=== PATIENT | male | born 1995 | race Caucasian/White ===

== ENCOUNTER 2018-02-09 11:26 | Inpatient (IN) | payer OTHER ==
[2018-02-09 12:39] VITALS: BMI 29.2
--- NOTE | 2018-02-09 12:49 | HP ---
COWS - Scale Resting Pulse: 0= [place] 80 or Below Sweatin= Chills/Flushing Restless Observation: 3= Extraneous Movement Pupil Size: 1= Pupils >than Normal Bone or Joint Aches: 2= Severe Diffuse Aches Runny Nose/ Eye Tearin= Runny Nose/Eyes GI Upset > 30mins: 3= Vomiting/Diarrhea Tremor Observation: 2= Slight Tremor Visible Yawning Observation: 2= >3x During Session Anxiety or Irritability: 2=Irritable/Anxious Goose Flesh Skin: 0=Smooth Skin COWS Score: 18 Admission ROS S - HPI Chief Complaint: i need help to stop using opiate,klonopin,marijuana Allergies/Adverse Reactions: Allergies Allergy/AdvReac Type Severity Reaction Status Date / Time No Known Allergies Allergy Verified 02/09/18 13:35 History of Present Illness: this 22 years old male with opiate dependence,klonopin,marijuana dependence, seeking detox,stated on methadone 150 mgs/day in [place], and walked out from program 20 days ago,seen in [facility] last night, severe withdrawal symptom never been in detox before nicotine dependence patient did not want to continue treatment and did not want to continue methadone program in [place] anymore, Exam Limitations: No Limitations - Ebola screening Have you traveled outside of the country in the last 21 days: No - Review of Systems Constitutional: Chills, Loss of Appetite, Malaise, Night Sweats, Changes in sleep, Weakness EENT: reports: Tearing, Nose Congestion Respiratory: reports: No Symptoms reported Cardiac: reports: No Symptoms Reported GI: reports: Diarrhea, Nausea, Vomiting, Abdominal cramping : reports: No Symptoms Reported Musculoskeletal: reports: Back Pain, Joint Pain, Muscle Pain, Joint Stiffness Integumentary: reports: Dryness Neuro: reports: Headache, Tremors Endocrine: reports: No Symptoms Reported Hematology: reports: No Symptoms Reported Psychiatric: reports: No Sypmtoms Reported, Judgement Intact, Mood/Affect Appropiate, Orientated x3 Patient History - Patient Medical History Hx Anemia: No Hx Asthma: No Hx Chronic Obstructive Pulmonary Disease (COPD): No Hx Cancer: No Hx Cardiac Disorders: No Hx Congestive Heart Failure: No Hx Hypertension: No Hx Hypercholesterolemia: No Hx Pacemaker: No HX Cerebrovascular Accident: No Hx Seizures: Yes (last 2 weeks ago) Hx Dementia: No Hx Diabetes: No Hx Gastrointestinal Disorders: No Hx Liver Disease: No Hx Genitourinary Disorders: No Hx Sexually Transmitted Disorders: No Hx Renal Disease (ESRD): No Hx Thyroid Disease: No Hx Human Immunodeficiency Virus (HIV): No (last 2014 negative) Hx Hepatitis C: No Hx Depression: No Hx Suicide Attempt: No Hx Bipolar Disorder: No Hx Schizophrenia: No Other Medical History: no suicidal,no homicidal - Patient Surgical History Past Surgical History: No - Smoking Cessation Smoking history: Current every day smoker Have you smoked in the past 12 months: Yes Aproximately how many cigarettes per day: 10 Cigars Per Day: 0 Hx Chewing Tobacco Use: No Initiated information on smoking cessation: Yes 'Breaking Loose' booklet given: 02/09/18 - Substance & Tx. History Hx Alcohol Use: No Hx Substance Use: Yes Substance Use Type: Marijuana, Opiates, Tranquilizers Hx Substance Use Treatment: No - Substances Abused percocet Route: Oral Frequency: 1-2 times per week Amount used: 10 ms Age of first use: 22 Date of Last Use: 02/08/18 Benzodiazepine (Klonopin) Route: Oral Frequency: 1-2 times per week Amount used: 2 mgs Age of first use: 22 Date of Last Use: 02/06/18 Marijuana/Hashish Route: Smoking Frequency: Daily Amount used: 200$ Age of first use: 11 Date of Last Use: 02/07/18 Family Disease History - Family Disease History Family History: Denies Admission Physical Exam BHS - Vital Signs Vital Signs: Vital Signs Temperature 97.4 F L 02/09/18 12:37 Pulse Rate 63 02/09/18 12:37 Respiratory Rate 18 02/09/18 12:37 Blood Pressure 140/83 02/09/18 12:37 O2 Sat by Pulse Oximetry (%) - Physical General Appearance: Yes: Moderate Distress, Tremorous, Sweating, Anxious HEENTM: Yes: Normal ENT Inspection, [place], Pharynx Normal Respiratory: Yes: Lungs Clear, Normal Breath Sounds, No Respiratory Distress Neck: Yes: Within Normal Limits, Supple, Trachea in good position Breast: Yes: Within Normal Limits Cardiology: Yes: Within Normal Limits, Regular Rhythm, S1, S2 Abdominal: Yes: Within Normal Limits, Normal Bowel Sounds, Non Tender, Soft Genitourinary: Yes: Within Normal Limits Back: Yes: Muscle Spasm Musculoskeletal: Yes: Back pain, Joint Stiffness, Muscle Pain Extremities: Yes: Normal Inspection, Normal Range of Motion, Tremors Neurological: Yes: trial management associate II-XII NML intact, Fully Oriented, Alert, Motor Strength 5/5 Integumentary: Yes: Dry Lymphatic: Yes: Within Normal Limits - Diagnostic (1) Opioid dependence with withdrawal Current Visit: Yes Status: Acute (2) Sedative hypnotic or anxiolytic dependence Current Visit: Yes Status: Acute (3) Cannabis dependence Current Visit: Yes Status: Acute (4) Dehydration Current Visit: Yes Status: Acute (5) Nicotine dependence Current Visit: Yes Status: Acute (6) Weight loss Current Visit: Yes Status: Acute (7) Insomnia secondary to depression with anxiety Current Visit: Yes Status: Acute Cleared for Admission [facility] - Detox or Rehab [facility] Level of Care: Medically Managed Detox Regimen/Protocol: Methadone
[2018-02-09] MEDS ORDERED: MENTHOL/PHENOL 1 EACH UD MM PRN (13:59)
[2018-02-09] MEDS ORDERED: ACETAMINOPHEN 325 MG TABLET (FP) PO PRN (13:59)
[2018-02-09] MEDS ORDERED: LOPERAMIDE HCL 2 MG CAPSULE PO PRN (13:59)
[2018-02-09] MEDS ORDERED: P-EPHED 60MG/TRIPROLIDI 2.5MG TABLET PO PRN (13:59)
[2018-02-09] MEDS ORDERED: MAGNESIUM HYDROX 2400MG/30ML ORAL SUSPENSION 30 ML CUP PO PRN (13:59)
[2018-02-09] MEDS ORDERED: NICOTINE POLACRILEX 2 MG GUM BC PRN (13:59)
[2018-02-09] MEDS ORDERED: IBUPROFEN 400 MG TABLET (FP) PO PRN (13:59)
[2018-02-09] MEDS ORDERED: guaiFENesin/D-METHORPHAN HB 10 ML UNIT-DOSE CUPS PO PRN (13:59)
[2018-02-09] MEDS ORDERED: MAG HYDROX/AL HYDROX/SIMETH 30 ML UNIT-DOSE CUP PO PRN (13:59)
[2018-02-09] MEDS ORDERED: MAGNESIUM CITRATE 300 ML BOTTLE PO PRN (13:59)
[2018-02-09] MEDS ORDERED: TRIMETHOBENZAMIDE HCL 200MG/2ML INJ IM PRN (14:04)
[2018-02-09] MEDS ORDERED: METHADONE HCL 10 MG TABLET (FOR DETOX USE ONLY) PO ONE ×2 (14:45→23:00)
[2018-02-09] MEDS: CYCLOBENZAPRINE HCL 10 MG TABLET (FP) PO PRN (15:00)
[2018-02-09] MEDS: diazePAM 5 MG TABLET PO PRN ×2 (15:01→22:44)
[2018-02-09] MEDS: NICOTINE 21 MG/24 HOURS TOPICAL PATCH TD SCH (15:03)
[2018-02-09 20:43] LABS: URINE APPEARANCE CLEAR; URINE BILIRUBIN NEGATIVE (<2.0 mg/dL); URINE COLOR LTYELLOW; URINE GLUCOSE (UA) NEGATIVE (NEGATIVE); URINE KETONE NEGATIVE (NEGATIVE); URINE LEUK ESTERASE NEGATIVE (NEGATIVE); URINE NITRITE NEGATIVE (NEGATIVE); URINE PROTEIN NEGATIVE (NEGATIVE); URINE UROBILINOGEN NEGATIVE mg/dL (0.2-1.0)
[2018-02-09] MEDS: THIAMINE HCL 100 MG TABLET (FP) PO SCH (22:42)
[2018-02-09] MEDS: cloNIDine HCL 0.1 MG TABLET PO SCH (22:42)
--- NOTE | 2018-02-10 08:27 | CONSULT ---
[facility] Psychiatric Consult - Data Date of interview: 02/10/18 Admission source: [facility] Identifying data: This is a 22 years old male, single, unemployed, homeless, with no PA support, with opiate dependence,klonopin,marijuana dependence, reporting withdrawal symptoms and seeking detox, reports taking at [facility] methadone 150 mgs/day in [place], walked out from program 20 days ago,seen in [facility] last night for safety. pPatient reports severe withdrawal symptoms and seeking for detox. Substance Abuse History: - Smoking Cessation. Smoking history: Current every day smoker. Have you smoked in the past 12 months: Yes. Aproximately how many cigarettes per day: 10. Cigars Per Day: 0. Hx Chewing Tobacco Use: No. Initiated information on smoking cessation: Yes. 'Breaking Loose' booklet given : 02/09/18. - Substance & Tx. History. Hx Alcohol Use: No. Hx Substance Use: Yes. Substance Use Type: Marijuana, Opiates, Tranquilizers. Hx Substance Use Treatment: No. - Substances Abused. percocet. Route: Oral. Frequency: 1- 2 times per week. Amount used: 10 ms. Age of first use: 22. Date of Last Use : 02/08/18. Benzodiazepine (Klonopin). Route: Oral. Frequency: 1-2 times per week. Amount used: 2 mgs. Age of first use: 22. Date of Last Use: . Marijuana/Hashish. Route: Smoking. Frequency: Daily. Amount used: 200 $. Age of first use: 11. Date of Last Use: 02/07/18 Medical History: Weight loss history, Insomnia Psychiatric History: Patient reports no psychiatric hospitalization history, reports no medications taking prior to admission. Denies suicidal, homicidial history Physical/Sexual Abuse/Trauma History: Denies Additional Comment: Observation. Detox Unit Care P[rotocol Mental Status Exam - Mental Status Exam Alert and Oriented to: Person Cognitive Function: Fair Patient Appearance: Unkempt Mood: Sad Affect: Mood Congruent Patient Behavior: Cooperative Speech Pattern: Appropriate Voice Loudness: Mildly Soft/Quiet Thought Process: Circumstantial Thought Disorder: Being Controlled Hallucinations: Denies Suicidal Ideation: Denies Homicidal Ideation: Denies Insight/Judgement: Fair Sleep: Difficulty falling asleep Appetite: Weight loss Muscle strength/Tone: Mild Hypotonicity Gait/Station: Shuffling Additional Comments: Observation. Detox Unit Care P[rotocol Psychiatric Findings - Problem List ([place] 1, 2,3) (1) Benzodiazepine abuse Current Visit: Yes Status: Acute (2) Alcohol abuse Current Visit: Yes Status: Acute (3) Cannabis dependence Current Visit: Yes Status: Acute (4) Nicotine dependence Current Visit: Yes Status: Acute (5) Opioid dependence with withdrawal Current Visit: Yes Status: Acute (6) Sedative hypnotic or anxiolytic dependence Current Visit: Yes Status: Acute (7) Weight loss Current Visit: Yes Status: Acute - Initial Treatment Plan Initial Treatment Plan: Observation. Detox Unit Care P[rotocol
[2018-02-10] MEDS ORDERED: METHADONE HCL 10 MG TABLET (FOR DETOX USE ONLY) PO ONE (10:00)
[2018-02-10] MEDS: PRENATAL VITAMINS W/ FOLIC ACID TABLET (FP) PO SCH (10:08)
[2018-02-10] MEDS: diazePAM 5 MG TABLET PO PRN ×4 (10:09→22:34)
[2018-02-10] MEDS: cloNIDine HCL 0.1 MG TABLET PO SCH ×2 (10:09→22:34)
[2018-02-10] MEDS: NICOTINE 21 MG/24 HOURS TOPICAL PATCH TD SCH (10:10)
[2018-02-10 10:13] LABS: HEMATOCRIT 44.3 % (35.4-49); HEMOGLOBIN 14.5 GM/dL (11.7-16.9); MCHC 32.7 g/dl (32.0-35.9); MEAN CELL VOLUME 91.6 fl (80-96); MEAN PLT VOLUME 9.9 fl (7.5-11.1); PLATELET COUNT 264 K/MM3 (134-434); RBC 4.83 M/mm3 (4.00-5.60); RDW 13.3 % (11.9-15.9); WHITE BLOOD COUNT 10.2 K/mm3 (4.0-10.0)
[2018-02-10 10:34] LABS: ALBUMIN 4.2 g/dl (3.4-5.0); ALK PHOS 89 U/L (45-117); ANION GAP 6 MMOL/L (8-16); BILIRUBIN,TOTAL 0.4 mg/dL (0.2-1); BLOOD UREA NITROGEN 6 mg/dL (7-18); CALCIUM 9.6 mg/dL (8.5-10.1); CHLORIDE 104 mmol/L (98-107); CO2 29 mmol/L (21-32); CREATININE 0.9 mg/dL (0.55-1.3); GLUCOSE,RANDOM 94 mg/dL (74-106); SGOT/AST 13 U/L (15-37); SGPT/ALT 40 U/L (13-61); SODIUM 140 mmol/L (136-145); TOT PROT 7.6 g/dl (6.4-8.2)
--- NOTE | 2018-02-10 11:10 | EKG ---
Test Reason : Blood Pressure : / mmHG Vent. Rate : 053 BPM Atrial Rate : 053 BPM P-R Int : 164 ms QRS Dur : 092 ms QT Int : 408 ms P-R-T Axes : 049 055 046 degrees QTc Int : 382 ms SINUS BRADYCARDIA WITH MARKED SINUS ARRHYTHMIA OTHERWISE NORMAL ECG NO PREVIOUS ECGS AVAILABLE Confirmed by MOLLY ROPER, ONEAL ([id number]) on 02/10/2018 11:10:21 AM Referred By: Rebecca Barker Confirmed By:ONEAL BARNES MD
[2018-02-10] MEDS: hydrOXYzine PAMOATE 25 MG CAPSULE (FP) PO PRN (13:14)
--- NOTE | 2018-02-10 16:20 | PN ---
BHS COWS - Scale Resting Pulse: 0= [place] 80 or Below Sweatin= Chills/Flushing Restless Observation: 1= Difficult to Sit Still Pupil Size: 1= Pupils >than Normal Bone or Joint Aches: 2= Severe Diffuse Aches Runny Nose/ Eye Tearin= Nasal Congestion GI Upset > 30mins: 2= Nausea/Diarrhea Tremor Observation of Outstretched Hands: 2= Slight Tremor Visible Yawning Observation: 2= >3x During Session Anxiety or Irritability: 2=Irritable/Anxious Goose Flesh Skin: 0=Smooth Skin COWS Score: 14 BHS Progress Note (SOAP) Subjective: body ache joints pain sweat tremor running nose gi distress Objective: 02/10/18 16:22 Vital Signs Temperature 97.3 F L 02/10/18 13:09 Pulse Rate 78 02/10/18 13:09 Respiratory Rate 18 02/10/18 13:09 Blood Pressure 120/61 02/10/18 13:09 O2 Sat by Pulse Oximetry (%) Laboratory Last Values WBC 10.2 K/mm3 (4.0-10.0) H 02/10/18 07:30 RBC 4.83 M/mm3 (4.00-5.60) 02/10/18 07:30 Hgb 14.5 GM/dL (11.7-16.9) 02/10/18 07:30 Hct 44.3 % (35.4-49) 02/10/18 07:30 MCV 91.6 fl (80-96) 02/10/18 07:30 MCH 30.0 pg (25.7-33.7) 02/10/18 07:30 MCHC 32.7 g/dl (32.0-35.9) 02/10/18 07:30 RDW 13.3 % (11.9-15.9) 02/10/18 07:30 Plt Count 264 K/MM3 (134-434) 02/10/18 07:30 MPV 9.9 fl (7.5-11.1) 02/10/18 07:30 Sodium 140 mmol/L (136-145) 02/10/18 07:30 Potassium 4.0 mmol/L (3.5-5.1) 02/10/18 07:30 Chloride 104 mmol/L (98-107) 02/10/18 07:30 Carbon Dioxide 29 mmol/L (21-32) 02/10/18 07:30 Anion Gap 6 MMOL/L (8-16) L 02/10/18 07:30 BUN 6 mg/dL (7-18) L 02/10/18 07:30 Creatinine 0.9 mg/dL (0.55-1.3) 02/10/18 07:30 Creat Clearance w eGFR > 60 (>60) 02/10/18 07:30 Random Glucose 94 mg/dL (74-106) 02/10/18 07:30 Calcium 9.6 mg/dL (8.5-10.1) 02/10/18 07:30 Total Bilirubin 0.4 mg/dL (0.2-1) 02/10/18 07:30 AST 13 U/L (15-37) L 02/10/18 07:30 ALT 40 U/L (13-61) 02/10/18 07:30 Alkaline Phosphatase 89 U/L (45-117) 02/10/18 07:30 Total Protein 7.6 g/dl (6.4-8.2) 02/10/18 07:30 Albumin 4.2 g/dl (3.4-5.0) 02/10/18 07:30 Urine Color Ltyellow 02/09/18 15:54 Urine Appearance Clear 02/09/18 15:54 Urine pH 6.0 (5.0-8.0) 02/09/18 15:54 Ur Specific [place] 1.017 (1.010-1.035) 02/09/18 15:54 Urine Protein Negative (NEGATIVE) 02/09/18 15:54 Urine Glucose (UA) Negative (NEGATIVE) 02/09/18 15:54 Urine Ketones Negative (NEGATIVE) 02/09/18 15:54 Urine Blood Negative (NEGATIVE) 02/09/18 15:54 Urine Nitrite Negative (NEGATIVE) 02/09/18 15:54 Urine Bilirubin Negative (<2.0 mg/dL) 02/09/18 15:54 Urine Urobilinogen Negative mg/dL (0.2-1.0) 02/09/18 15:54 Ur Leukocyte Esterase Negative (NEGATIVE) 02/09/18 15:54 RPR Titer Nonreactive (NONREACTIVE) 02/10/18 07:30 HIV 1&2 Antibody Screen Negative 02/10/18 07:30 HIV P24 Antigen Negative 02/10/18 07:30 lab noted Assessment: 02/10/18 16:24 withdrawal sx Plan: continue detox
[2018-02-10] MEDS: CYCLOBENZAPRINE HCL 10 MG TABLET (FP) PO PRN ×2 (18:59→22:34)
[2018-02-10] MEDS: THIAMINE HCL 100 MG TABLET (FP) PO SCH (22:34)
[2018-02-10] MEDS: MELATONIN 5 MG TABLETS PO PRN (22:36)
--- NOTE | 2018-02-11 09:14 | PN ---
BHS COWS - Scale Resting Pulse: 0= [place] 80 or Below Sweatin=Flushed/Facial Moisture Restless Observation: 1= Difficult to Sit Still Pupil Size: 0= Normal to Room Light Bone or Joint Aches: 1= Mild Discomfort Runny Nose/ Eye Tearin= Nasal Congestion GI Upset > 30mins: 1= Stomach Cramp Tremor Observation of Outstretched Hands: 2= Slight Tremor Visible Yawning Observation: 1= 1-2x During Session Anxiety or Irritability: 2=Irritable/Anxious Goose Flesh Skin: 0=Smooth Skin COWS Score: 11 BHS Progress Note (SOAP) Subjective: sweats mild shakes interrupted sleep anxiety Objective: 02/11/18 09:12 Vital Signs Temperature 96.8 F L 02/11/18 07:02 Pulse Rate 66 02/11/18 07:02 Respiratory Rate 18 02/11/18 07:02 Blood Pressure 107/66 02/11/18 07:02 O2 Sat by Pulse Oximetry (%) Laboratory Tests 02/09/18 02/10/18 02/10/18 15:54 07:30 07:30 WBC 10.2 H RBC 4.83 Hgb 14.5 Hct 44.3 MCV 91.6 MCH 30.0 MCHC 32.7 RDW 13.3 Plt Count 264 MPV 9.9 Sodium Potassium Chloride Carbon Dioxide Anion Gap BUN Creatinine Creat Clearance w eGFR Random Glucose Calcium Total Bilirubin AST ALT Alkaline Phosphatase Total Protein Albumin Urine Color Ltyellow Urine Appearance Clear Urine pH 6.0 Ur Specific [place] 1.017 Urine Protein Negative Urine Glucose (UA) Negative Urine Ketones Negative Urine Blood Negative Urine Nitrite Negative Urine Bilirubin Negative Urine Urobilinogen Negative Ur Leukocyte Esterase Negative RPR Titer HIV 1&2 Antibody Screen Negative HIV P24 Antigen Negative 02/10/18 02/10/18 07:30 07:30 WBC RBC Hgb Hct MCV MCH MCHC RDW Plt Count MPV Sodium 140 Potassium 4.0 Chloride 104 Carbon Dioxide 29 Anion Gap 6 L BUN 6 L Creatinine 0.9 Creat Clearance w eGFR > 60 Random Glucose 94 Calcium 9.6 Total Bilirubin 0.4 AST 13 L ALT 40 Alkaline Phosphatase 89 Total Protein 7.6 Albumin 4.2 Urine Color Urine Appearance Urine pH Ur Specific [place] Urine Protein Urine Glucose (UA) Urine Ketones Urine Blood Urine Nitrite Urine Bilirubin Urine Urobilinogen Ur Leukocyte Esterase RPR Titer Nonreactive HIV 1&2 Antibody Screen HIV P24 Antigen aaox3 ambulating no acute distress Assessment: 02/11/18 09:13 withdrawal sx Plan: continue detox increase fluids
[2018-02-11] MEDS ORDERED: METHADONE HCL 5 MG TABLET (FOR DETOX USE ONLY) PO ONE (10:00)
[2018-02-11] MEDS: NICOTINE 21 MG/24 HOURS TOPICAL PATCH TD SCH (10:27)
[2018-02-11] MEDS: cloNIDine HCL 0.1 MG TABLET PO SCH ×2 (10:27→22:17)
[2018-02-11] MEDS: PRENATAL VITAMINS W/ FOLIC ACID TABLET (FP) PO SCH (10:28)
[2018-02-11] MEDS: diazePAM 5 MG TABLET PO PRN ×3 (10:31→22:17)
[2018-02-11] MEDS: CYCLOBENZAPRINE HCL 10 MG TABLET (FP) PO PRN ×2 (12:57→22:17)
[2018-02-11] MEDS: hydrOXYzine PAMOATE 25 MG CAPSULE (FP) PO PRN (17:38)
[2018-02-11] MEDS: THIAMINE HCL 100 MG TABLET (FP) PO SCH (22:17)
[2018-02-11] MEDS: MELATONIN 5 MG TABLETS PO PRN (22:18)
[2018-02-12] MEDS ORDERED: METHADONE HCL 5 MG TABLET (FOR DETOX USE ONLY) PO ONE (10:00)
[2018-02-12] MEDS: PRENATAL VITAMINS W/ FOLIC ACID TABLET (FP) PO SCH (10:05)
[2018-02-12] MEDS: NICOTINE 21 MG/24 HOURS TOPICAL PATCH TD SCH (10:05)
[2018-02-12] MEDS: diazePAM 5 MG TABLET PO PRN (10:08)
[2018-02-12] MEDS: cloNIDine HCL 0.1 MG TABLET PO SCH ×2 (10:08→22:17)
--- NOTE | 2018-02-12 10:16 | PN ---
BHS Progress Note (SOAP) Subjective: anxiety sweats irritable Objective: 02/12/18 10:16 Vital Signs Temperature 96.6 F L 02/12/18 07:10 Pulse Rate 60 02/12/18 07:10 Respiratory Rate 18 02/12/18 07:10 Blood Pressure 108/58 L 02/12/18 07:10 O2 Sat by Pulse Oximetry (%) aaox3 ambulating no acute distress Assessment: 02/12/18 10:16 mild withdrawal sx Plan: continue detox increase fluids
[2018-02-12] MEDS: hydrOXYzine PAMOATE 25 MG CAPSULE (FP) PO PRN ×2 (18:26→22:17)
[2018-02-12] MEDS: THIAMINE HCL 100 MG TABLET (FP) PO SCH (22:17)
[2018-02-12] MEDS: CYCLOBENZAPRINE HCL 10 MG TABLET (FP) PO PRN (22:17)
[2018-02-12] MEDS: MELATONIN 5 MG TABLETS PO PRN (22:18)
[2018-02-13] MEDS ORDERED: METHADONE HCL 10 MG TABLET (FOR DETOX USE ONLY) PO ONE (10:00)
--- NOTE | 2018-02-13 10:21 | PN ---
BHS Progress Note (SOAP) Subjective: sweats tired Objective: 02/13/18 10:21 Vital Signs Temperature 97.8 F 02/12/18 22:41 Pulse Rate 65 02/12/18 22:41 Respiratory Rate 18 02/13/18 07:54 Blood Pressure 143/76 02/12/18 22:41 O2 Sat by Pulse Oximetry (%) aaox3 ambulating no acute distress Assessment: 02/13/18 10:21 mild withdrawal sx Plan: continue detox d/c in am
[2018-02-13] MEDS: NICOTINE 21 MG/24 HOURS TOPICAL PATCH TD SCH (10:36)
[2018-02-13] MEDS: PRENATAL VITAMINS W/ FOLIC ACID TABLET (FP) PO SCH (10:36)
[2018-02-13] MEDS: cloNIDine HCL 0.1 MG TABLET PO SCH ×2 (10:37→22:06)
[2018-02-13] MEDS: CYCLOBENZAPRINE HCL 10 MG TABLET (FP) PO PRN (22:06)
[2018-02-13] MEDS: hydrOXYzine PAMOATE 25 MG CAPSULE (FP) PO PRN (22:06)
[2018-02-13] MEDS: MELATONIN 5 MG TABLETS PO PRN (22:06)
[2018-02-13] MEDS: THIAMINE HCL 100 MG TABLET (FP) PO SCH (22:06)
[2018-02-14] MEDS: hydrOXYzine PAMOATE 25 MG CAPSULE (FP) PO PRN (05:26)
[2018-02-14] MEDS: CYCLOBENZAPRINE HCL 10 MG TABLET (FP) PO PRN (05:26)
[2018-02-14] MEDS ORDERED: METHADONE HCL 5 MG TABLET (FOR DETOX USE ONLY) PO ONE (06:00)
[2018-02-14 06:33] VITALS: BP 103/56; PULSE 59; TEMP 97
--- NOTE | 2018-02-14 08:52 | DS ---
[facility] Detox Discharge Summary Admission Date: 02/09/18 Discharge Date: 02/14/18 - History Present History: Opioid Dependence, Sedative Dependence - Physical Exam Results Vital Signs: Vital Signs Temperature 97.0 F L 02/14/18 06:32 Pulse Rate 59 L 02/14/18 06:32 Respiratory Rate 12 02/14/18 06:32 Blood Pressure 103/56 L 02/14/18 06:32 O2 Sat by Pulse Oximetry (%) - Treatment Hospital Course: Detox Protocol Followed, Detoxed Safely, Responded well, Discharged Condition Good, Rehab Referral Accepted - Medication Discharge Medications: Ambulatory Orders Methadone [Dolophine -] 150 mg PO DAILY 02/09/18 - Diagnosis (1) Benzodiazepine abuse Current Visit: Yes Status: Acute (2) Cannabis dependence Current Visit: Yes Status: Acute (3) Dehydration Current Visit: Yes Status: Acute (4) Insomnia secondary to depression with anxiety Current Visit: Yes Status: Acute (5) Nicotine dependence Current Visit: Yes Status: Acute Qualifiers: Nicotine product type: cigarettes (6) Opioid dependence with withdrawal Current Visit: Yes Status: Chronic (7) Sedative hypnotic or anxiolytic dependence Current Visit: Yes Status: Chronic (8) Weight loss Current Visit: Yes Status: Acute - AMA Did Patient Leave Against Medical Advice: No
== END 2018-02-14 09:07 | disposition home or self-care (01) | DRG 773 ==
LOC: YASAS 11:26 → Y6N 13:56
PROC: HZ2ZZZZ Detoxification Services for Substance Abuse Treatment (ICD-10-PCS; principal; 2018-02-09)
DX: F11.23 Opioid dependence with withdrawal (principal); F13.20 Sedative, hypnotic or anxiolytic dependence, uncomplicated; F12.10 Cannabis abuse, uncomplicated; F51.05 Insomnia due to other mental disorder; F17.210 Nicotine dependence, cigarettes, uncomplicated; E86.0 Dehydration; Z87.898 Personal history of other specified conditions; Z59.0 Homelessness
CPT/HCPCS: 36415; 80053; 81003; 85027; 86593; 87389; 93005; 93010; J0735